=== PATIENT | female | born 1975 | race African-American/Black ===

== ENCOUNTER 2017-04-20 20:10 | Emergency (ER) | payer OTHER ==
[~2017-04-20] VITALS: Ht 165.1 cm; Wt 78.0 kg
--- NOTE | ~2017-04-20 | EKG ---
PATIENT: CIRO YANG UNIT #: [id number] Ventricular Rate: 73 BPM Atrial Rate: 73 BPM P-R Interval: 152 ms QRS Duration: 76 ms Q-T Interval: 430 ms QTC Calculation(Bezet): 473 ms P [place]: 52 degrees Calculated R [place]: 33 degrees Calculated T [place]: 49 degrees Diagnosis Line: Normal sinus rhythm Diagnosis Line: Normal ECG Diagnosis Line: When compared with ECG of 18-SEP-2016 13:37, Diagnosis Line: No significant change was found Diagnosis Line: Confirmed by IRMA SALGADO MD ([id number]) on 04/23/2017 Diagnosis Line: 1:53:07 PM INTERPRETING MD: DAMIAN JIMÉNEZ
--- NOTE | ~2017-04-20 | CR72 ---
[facility] A Service of [facility] RADIOLOGY TEXT RESULTS PATIENT: CIRO YANG LOCATION: EDNA : 74 UNIT #: [id number] AGE: [address]: Paco Ortega MD SEX: F ORDER DR: [id number] [facility] [address]. [place], [place] [address] [id number] MR#: [id number] Acc #: [id number] NAME: CIRO YANG : 1975 SEX: F STUDY DATE/TIME: 04/20/2017 21:40 UNIT: EDNA ROOM: STUDY DESCRIPTION: CR Chest Single View Portable Attending Physician: Paco Ortega M.D. Ordering Physician: Paco Ortega M.D. Primary Care Physician: [facility] MEDICAL IMAGING REPORT This report is preliminary unless electronic signature is present EXAM Frontal chest 04/20/2017 INDICATIONS 42-year-old female with dizziness, shortness of air with activity today. Hypertension. TECHNIQUE Frontal chest COMPARISON No comparisons. FINDINGS Cardiac silhouette within normal limits. Vascularity unremarkable. Left lung is clear. Faint hazy opacity in the right lung base may represent atelectasis or faint infiltrate. No pneumothorax. There are no comparisons in our system. IMPRESSION Faint atelectasis favored over early infiltrate in the right lung base. Otherwise negative frontal chest. We have no comparisons. Dictated by... Gt Prajapati M.D. THIS IS AN ELECTRONICALLY VERIFIED REPORT Gt Prajapati M.D. at 04/21/2017 9:29 PM JLY/marco a TD: 04/21/2017 16:56 JOB #: [id number] [facility] A Service [facility] RADIOLOGY TEXT RESULTS PATIENT: CIRO YANG LOCATION: EDNA : 74 UNIT #: [id number] AGE: [address]: Paco Ortega MD SEX: F ORDER DR: MEDICAL IMAGING REPORT Page 1 of 1 COPY
[~2017-04-20 20:10] MED LIST: ASPIRIN81 MG; CLOBETASOL 0.0560 GM TOP; CLOPIDOGREL75 MG PO; FERRETTS18 MG PO; LIPITOR40 MG PO; VITAMIN B122500 MC1 PO
[2017-04-20 21:31] LABS: BASOPHIL# 0.1 X10e3 (0-0.3); BASOPHIL% 1.5 % (0-2.5); EOSINOPHIL# 0.1 X10e3 (0-0.7); EOSINOPHIL% 1.4 % (0.0-7.0); HEMATOCRIT 25.9 % (35.0-45.0); HEMOGLOBIN 7.7 gm/dL (12.0-16.0); LYMPHOCYTE# 1.2 X10e3 (1.0-3.5); LYMPHOCYTE% 23.8 % (17.0-45.0); MEAN CELL VOLUME 54.3 FL (83-96); MEAN CORPUSCULAR HEMOGLOBIN 16.2 PG (28-34); MEAN CORPUSCULAR HGB CONC 29.9 g/dL (30-36); MEAN PLATELET VOLUME 8.5 FL (6.5-11.5); MONOCYTE# 0.4 X10e3 (0-1.0); MONOCYTE% 7.3 % (3.0-12.0); NEUTROPHIL# 3.4 X10e3 (1.5-7.1); PLATELET COUNT 326 X10e3 (140-420); RED BLOOD COUNT 4.76 X10e (3.90-5.30); RED CELL DISTRIBUTION WIDTH 23.2 % (11.0-15.5); WHITE BLOOD COUNT 5.2 X10e3 (4.0-10.5)
[2017-04-20 21:33] LABS: DIFF IND YES
[2017-04-20 21:37] LABS: POC - CKMB <1.0 ng/mL (0.0-7.9); POC - TROPONIN <0.05 ng/mL (<=0.05)
[2017-04-20 22:03] LABS: ALBUMIN SERUM 4.3 g/dL (3.5-5.0); BILIRUBIN, DIRECT 0.1 mg/dL (0.0-0.2); BILIRUBIN,TOTAL 0.1 mg/dL (0.2-2.0); CREATININE SERUM 0.7 mg/dL (0.6-1.4); POTASSIUM 3.2 mmol/L (3.5-5.1); PROTEIN TOTAL SERUM 7.2 g/dL (6.0-8.3)
[2017-04-20 22:25] LABS: PLATELET ESTIMATE NORMAL (NORMAL); POIKILOCYTOSIS SL
[2017-04-20 22:26] LABS: HYPOCHROMIA SL; OVALOCYTES PRESENT; TARGET CELLS SL
== END 2017-04-20 22:38 | disposition left against medical advice (07) ==
LOC: CED 20:10
PROVIDERS: Emergency Medicine
DX: D64.9 Anemia, unspecified (principal); I10 Essential (primary) hypertension; F17.200 Nicotine dependence, unspecified, uncomplicated; Z79.899 Other long term (current) drug therapy
CPT/HCPCS: 36415; 71010; 80048; 80076; 82553; 82947; 84484; 85025; 93005; 99285